=== PATIENT | female | born 1935 | race Hispanic/Latino ===

== ENCOUNTER 2017-10-31 13:57 | Inpatient (IN) | payer MEDICARE ==
[2017-10-31 14:53] VITALS: BMI 26.8
[2017-10-31] MEDS ORDERED: metroNIDAZOLE IV 500 mg/100 ml 500 MG/100 ML BAG IVPB STA (15:00)
[2017-10-31] MEDS ORDERED: Piperacillin/Tazobact 3.375 gm 100 ML IVPB STA (15:00)
--- NOTE | 2017-10-31 15:09 | ED PDOC ---
Arrival/HPI - General Chief Complaint: Hip Pain Time Seen by Provider: 10/31/17 13:59 Historian: Patient - History of Present Illness Narrative History of Present Illness (Text): 10/31/17 15:00 A 81 year old female, with no past surgical history presents to the emergency department complaining of worsening right-side abdominal pain for 3 months. Patient reports having seen PMD last week and was sent to [facility] [place] for [place] CT scan. CT results showed abscess to right abdomen, questionable diverticulitis vs rupture. Patient was sent by PMD to ER for further evaluation. Patient denies any fever, cough, or any other complaints at this time. PMD: Dr. Fernandez 10/31/17 15:14 Report (no images available) "CT abd/pelvis with po and IV contrast: mass having appearance of an abscess associated with the posterior wall of the ascending colon. May be diverticular abscess. Appendix not seen, if it has not been removed, periappendiceal abscess is also a consideration. Perforated neoplasm with abscess is less likely but also should be considered. Adjacent lymph nodes are less likely reaction inflammatory nodes. Left renal mass likely a hyperdense cyst which could be confirmed by ultrasound " Past Medical History - Provider Review Nursing Documentation Reviewed: Yes - Reproductive Menopause: Yes - Cardiac Hx Cardiac Disorders: Yes Hx Hypertension: Yes - Pulmonary Hx Respiratory Disorders: No - Neurological Hx Neurological Disorder: No - HEENT Hx HEENT Disorder: No - Renal Hx Renal Disorder: No - Endocrine/Metabolic Hx Endocrine Disorders: No - Hematological/Oncological Hx Blood Disorders: No - Integumentary Hx Dermatological Disorder: No - Musculoskeletal/Rheumatological Hx Musculoskeletal Disorders: Yes Other/Comment: rip hip pain - Gastrointestinal Hx Gastrointestinal Disorders: No - Genitourinary/Gynecological Hx Genitourinary Disorders: No - Psychiatric Hx Psychophysiologic Disorder: No Hx Substance Use: No - Anesthesia Hx Anesthesia: No Family/Social History - Physician Review Nursing Documentation Reviewed: Yes Family/Social History: No Known Family HX Smoking Status: Never Smoked Hx Alcohol Use: Yes Frequency of alcohol use: Socially Hx Substance Use: No Allergies/Home Meds Allergies/Adverse Reactions: Allergies No Known Allergies Allergy (Verified 10/31/17 14:30) Home Medications: Home Meds Medication Instructions Recorded Confirmed Atenolol/Chlorthalidone [Tenoretic 1 each PO DAILY 10/31/17 10/31/17 50 Tablet] Review of Systems - Review of Systems Constitutional: absent: Fevers Eyes: absent: Vision Changes ENT: absent: Hearing Changes Respiratory: absent: SOB, Cough, Sputum, Wheezing Cardiovascular: absent: Chest Pain, Palpitations, Edema, Calf Pain, Orthopnea, Syncope Gastrointestinal: Abdominal Pain (right-side). absent: Constipation, Diarrhea, Nausea, Vomiting Genitourinary Female: absent: Dysuria Neurological: absent: Headache Physical Exam Vital Signs Temp Pulse Resp BP Pulse Ox 10/31/17 15:33 97.9 F 60 18 138/62 99 Temperature: Afebrile Blood Pressure: Normal Pulse: Regular Respiratory Rate: Normal Appearance: Positive for: Well-Appearing, Non-Toxic, Comfortable Pain Distress: None Mental Status: Positive for: Alert and Oriented X 3 - Systems Exam Head: Present: Atraumatic, Normocephalic Pupils: Present: PERRL Extroacular Muscles: Present: EOMI Conjunctiva: Present: Normal Respiratory/Chest: Present: Clear to Auscultation, Good Air Exchange. No: Respiratory Distress, Accessory Muscle Use Cardiovascular: Present: Regular Rate and Rhythm, Normal S1, S2. No: Murmurs Abdomen: Present: Tenderness (RLQ tenderness) Upper Extremity: Present: Normal Inspection. No: Cyanosis, Edema Lower Extremity: Present: Normal Inspection. No: Edema Neurological: Present: GCS=15, CN II-XII Intact, Speech Normal Skin: Present: Warm, Dry, Normal Color. No: Rashes Psychiatric: Present: Alert, Oriented x 3, Normal Insight, Normal Concentration Medical Decision Making ED Course and Treatment: 10/31/17 15:04 Impression: 81 year old female with right-side worsening abdominal pain. Physical exam shows RLQ tenderness to abdomen; no other acute findings on examination. Plan: -- Chest X-ray -- Labs -- Blood Culture -- Urine Culture -- Flagyl -- Zosyn -- Urinalysis -- Reassess and disposition Progress Notes: EKG: Ordered, reviewed, and independently interpreted the EKG. Rate : 59 BPM Rhythm : Sinus bradycardia Interpretation : LVH, no acute St changes. Comparison : No previous EKG for comparison. 10/31/2017 15:20 Chest X-ray IMPRESSION: No acute cardiopulmonary pathology seen. Dictator: Karla Almaguer MD 10/31/17 16:27 Antibiotics started after culture as requested by Dr. Fernandez. Surgery consult placed to Dr. Silver as requested by Dr. Fernandez. Surgery resident aware. - Lab Interpretations Lab Results: 10/31/17 15:25 Lab Results 10/31/17 15:25: PT 12.1, INR 1.06, APTT 29.8 10/31/17 15:25: WBC 10.1, RBC 3.90, Hgb 10.8 L, Hct 32.4 L, MCV 83.1, MCH 27.7, MCHC 33.3, RDW 14.6 H, Plt Count 318, MPV 8.5, Gran % 76.5 H, Lymph % (Auto) 14.4 L, [place] % (Auto) 6.6 H, Eos % (Auto) 2.3, Baso % (Auto) 0.2, Gran # 7.76 H , Lymph # (Auto) 1.5, [place] # (Auto) 0.7 H, Eos # (Auto) 0.2, Baso # (Auto) 0.02 - RAD Interpretation Radiology Orders: 10/31/17 14:53 CHEST PORTABLE [RAD] Stat - Medication Orders Current Medication Orders: Discontinued Medications Metronidazole (Flagyl) 500 mg in 100 mls @ 100 mls/hr IVPB STAT STA PRN Reason: Protocol Stop: 10/31/17 15:59 Piperacillin Sod/Tazobactam Sod (Zosyn 3.375 In Ns 100ml) 100 mls @ 200 mls/hr IVPB STAT STA PRN Reason: Protocol Stop: 10/31/17 15:29 - Scribe Statement The provider has reviewed the documentation as recorded by the Marcel Vitale Provider Scribe Attestation: All medical record entries made by the Marcel were at my direction and personally dictated by me. I have reviewed the chart and agree that the record accurately reflects my personal performance of the history, physical exam, medical decision making, and the department course for this patient. I have also personally directed, reviewed, and agree with the discharge instructions and disposition. Disposition/Present on Arrival - Present on Arrival Any Indicators Present on Arrival: No History of DVT/PE: No History of Uncontrolled Diabetes: No Urinary Catheter: No History of Decub. Ulcer: No History Surgical Site Infection Following: None - Disposition Have Diagnosis and Disposition been Completed?: Yes Diagnosis: Abdominal pain Disposition: HOSPITALIZED Disposition Time: 15:17 Patient Plan: Admission Patient Problems: Current Active Problems Problem Status Onset Abdominal pain Acute Condition: FAIR
--- NOTE | 2017-10-31 15:22 | RAD ---
HISTORY: admission COMPARISON: No prior. FINDINGS: LUNGS: No active pulmonary disease. PLEURA: No significant pleural effusion identified, no pneumothorax apparent. CARDIOVASCULAR: Normal. OSSEOUS STRUCTURES: No significant abnormalities. VISUALIZED UPPER ABDOMEN: There may be residual contrast within the colon from an outside imaging study. The current imaging studies here noted. OTHER FINDINGS: None. IMPRESSION: No acute cardiopulmonary pathology seen
[2017-10-31 15:48] LABS: BASO # 0.02 K/mm3 (0.0-2.0); BASO % 0.2 % (0.0-3.0); EOS # 0.2 (0.0-0.7); EOS % 2.3 % (1.5-5.0); GRAN # 7.76 (1.4-6.5); GRAN % 76.5 % (50.0-68.0); HEMOGLOBIN 10.8 g/dL (12.0-16.0); LYMPH # 1.5 (1.2-3.4); LYMPH % 14.4 % (22.0-35.0); MEAN CELL VOLUME 83.1 fl (80.0-105.0); MEAN CORPUSCULAR HEMOGLOBIN 27.7 pg (25.0-35.0); MEAN CORPUSCULAR HGB CONC 33.3 g/dl (31.0-37.0); MEAN PLATELET VOLUME 8.5 fl (7.0-11.0); MONO # 0.7 (0.1-0.6); MONO % 6.6 % (1.0-6.0); RBC 3.9 10^6/uL (3.5-6.1); RED CELL DISTRIBUTION WIDTH 14.6 % (11.5-14.5); WHITE BLOOD COUNT 10.1 10^3/ul (4.5-11.0)
[2017-10-31 16:00] LABS: INR 1.06 (0.93-1.08); PARTIAL THROMBOPLASTIN TIME 29.8 Seconds (25.1-36.5); PROTHROMBIN TIME 12.1 SECONDS (9.4-12.5)
[2017-10-31 16:32] LABS: ALB/GLOB RATIO 1.2 (1.1-1.8); ALT/SGPT 38 U/L (7-56); AST/SGOT 35 U/L (14-36); BLOOD UREA NITROGEN 19 mg/dL (7-21); CALCIUM 9.4 mg/dL (8.4-10.5); GFR AFRICAN-AMERICAN > 60; GFR NON-AFRICAN AMERICAN 60
[2017-10-31 17:16] LABS: URINE APPEARANCE CLEAR (CLEAR); URINE BILIRUBIN NEGATIVE (NEGATIVE); URINE BLOOD NEGATIVE (NEGATIVE); URINE COLOR YELLOW (YELLOW); URINE GLUCOSE (UA) NEGATIVE (NEGATIVE); URINE LEUKOCYTE ESTERASE NEGATIVE Leu/uL (NEGATIVE); URINE PROTEIN NEGATIVE mg/dL (<30 mg/dL); URINE UROBILINOGEN 0.2 E.U./dL (<1 E.U./dL)
[2017-10-31] MEDS ORDERED: Piperacillin/Tazobact 3.375 gm 100 ML IVPB SCH (18:00)
--- NOTE | 2017-10-31 18:02 | CP.PCM.CON ---
History of Present Illness - History of Present Illness History of Present Illness: Surgery Consult: Dr. Silver (Dr. Esdras willard) Pt is an 81F with PMHx significant only for HTN, who was sent to [facility] by her PMD for RLQ pain. Pt states she's been having intermittent RLQ pain for the past few months that she attributed to a pulled muscle. She describes the pain as dull & positional and states that her daughter finally convinced her to see her PMD last week. Blood work was done in the office & pt was sent to get a CT scan that she got today at [facility] [place] report was read as 4cm irregular mass with thick wall & fluid/bubbles inside , suspicious for an abscess. Mass is located posterior to the ascending colon, deforming the colon wall & appears to be communicating with the ascending colon. Perforated appendicitis vs diverticular abscess can't be ruled out. Pt was told to come to the ER & surgery consulted to evaluate. Upon examination in the ER, pt is sitting comfortably in bedside chair & states she feels well. States the pain hasn't really bothered her at all today & she has not had any other associated symptoms. She denies nausea/vomiting, fevers/chills, constipation/diarrhea. She does admit to having several lose BMs after drinking PO contrast & states she has no other complaints at this time. PMHx: HTN PSHx: denies SocialHx: denies smoking/drugs, social EtOH NKDA Review of Systems - Review of Systems All systems: reviewed and no additional remarkable complaints except (as per HPI ) Past Patient History - Past Social History Smoking Status: Never Smoked - CARDIAC Hx Cardiac Disorders: Yes Hx Hypertension: Yes - PULMONARY Hx Respiratory Disorders: No - NEUROLOGICAL Hx Neurological Disorder: No - HEENT Hx HEENT Problems: No - RENAL Hx Chronic Kidney Disease: No - ENDOCRINE/METABOLIC Hx Endocrine Disorders: No - HEMATOLOGICAL/ONCOLOGICAL Hx Blood Disorders: No - INTEGUMENTARY Hx Dermatological Problems: No - MUSCULOSKELETAL/RHEUMATOLOGICAL Hx Musculoskeletal Disorders: Yes Other/Comment: rip hip pain - GASTROINTESTINAL Hx Gastrointestinal Disorders: No - GENITOURINARY/GYNECOLOGICAL Hx Genitourinary Disorders: No - PSYCHIATRIC Hx Psychophysiologic Disorder: No Hx Substance Use: No - SURGICAL HISTORY Hx Surgeries: No - ANESTHESIA Hx Anesthesia: No Meds Allergies/Adverse Reactions: Allergies Allergy/AdvReac Type Severity Reaction Status Date / Time No Known Allergies Allergy Verified 10/31/17 14:30 - Medications Medications: Current Medications Potassium Chloride (Potassium Chloride 20 Meq/100 Ml) 20 meq in 100 mls @ 50 mls/hr IVPB Q2H [facility] Stop: 10/31/17 20:44 Last Admin: 10/31/17 17:02 Dose: 50 mls/hr Metronidazole (Flagyl) 500 mg in 100 mls @ 100 mls/hr IVPB Q8 [facility] PRN Reason: Protocol Piperacillin Sod/Tazobactam Sod (Zosyn 3.375 In Ns 100ml) 100 mls @ 200 mls/hr IVPB Q6 A[facility]ENIO PRN Reason: Protocol Stop: 11/01/17 00:29 Sodium Chloride (Sodium Chloride 0.9%) 500 mls @ 80 mls/hr IV .Q6H15M [facility] Physical Exam - Constitutional Appears: Well, No Acute Distress - Head Exam Head Exam: ATRAUMATIC, NORMOCEPHALIC - Eye Exam Eye Exam: Normal appearance - ENT Exam ENT Exam: Mucous Membranes Moist - Respiratory Exam Respiratory Exam: NORMAL BREATHING PATTERN - Cardiovascular Exam Cardiovascular Exam: RRR - GI/Abdominal Exam GI & Abdominal Exam: Soft, Tenderness (to deep palpation in the RLQ ). absent: Distended, Guarding, Rebound - Extremities Exam Extremities exam: Positive for: full ROM - Neurological Exam Neurological exam: Alert, Oriented x3 - Skin Skin Exam: Dry, Warm Results - Vital Signs Recent Vital Signs: Last Vital Signs Temp 97.9 F 10/31/17 15:33 Pulse 64 10/31/17 17:21 Resp 17 10/31/17 17:21 BP 135/70 10/31/17 17:21 Pulse Ox 100 10/31/17 17:21 - Labs Result Diagrams: 10/31/17 15:25 10/31/17 15:25 Labs: Laboratory Results - last 24 hr 10/31/17 16:56 Urine Color Yellow Urine Appearance Clear Urine pH 6.0 Ur Specific [place] <= 1.005 Urine Protein Negative Urine Glucose (UA) Negative Urine Ketones Negative Urine Blood Negative Urine Nitrate Negative Urine Bilirubin Negative Urine Urobilinogen 0.2 Ur Leukocyte Esterase Negative - Imaging and Cardiology CT scan - abdomen Status: Report reviewed by me Assessment & Plan - Assessment and Plan (Free Text) Assessment: 81F with RLQ pain & RLQ collection/mass as seen on CT scan Plan: - pt clinically does not look sick, however given the findings on CT scan she will need further investigation - daughter at bedside encouraged to get CT scan imaging done at [facility] & she will attempt to obtain this tomorrow so that the actual images can be viewed by us - may need a repeat CT abdomen/pelvis if the images are not available from [facility] - ok to give CLD as pt was tolerating reg food at home w/o any issues - will cont to monitor and follow - d/w Dr. Esdras Gregg, PGY-3
[2017-10-31] MEDS: Sodium Chloride 0.9% 500 ML IV SCH (19:34)
[2017-10-31] MEDS ORDERED: CHLORTHALIDONE PO SCH (21:00)
[2017-10-31] MEDS ORDERED: ATENOLOL PO SCH (21:00)
[2017-10-31] MEDS: metroNIDAZOLE IV 500 mg/100 ml 500 MG/100 ML BAG IVPB SCH (21:32)
--- NOTE | 2017-10-31 21:46 | CARD ---
APPROVED REPORT EKG Measurement Heart [id number] <Conclusion> Sinus bradycardia Minimal voltage criteria for LVH, may be normal variant Borderline ECG
[2017-11-01] MEDS: Piperacillin/Tazobact 3.375 gm 100 ML IVPB SCH ×5 (00:40→23:19)
[2017-11-01] MEDS: metroNIDAZOLE IV 500 mg/100 ml 500 MG/100 ML BAG IVPB SCH ×3 (06:31→21:30)
[2017-11-01 07:02] LABS: HEMOGLOBIN 9.5 g/dL (12.0-16.0); MEAN CORPUSCULAR HEMOGLOBIN 26.5 pg (25.0-35.0); MEAN PLATELET VOLUME 8.5 fl (7.0-11.0); RBC 3.58 10^6/uL (3.5-6.1); RED CELL DISTRIBUTION WIDTH 14.7 % (11.5-14.5); WHITE BLOOD COUNT 9.1 10^3/ul (4.5-11.0)
[2017-11-01 07:14] LABS: BLOOD UREA NITROGEN 15 mg/dL (7-21); CALCIUM 8.5 mg/dL (8.4-10.5); GFR AFRICAN-AMERICAN > 60; GFR NON-AFRICAN AMERICAN 60
--- NOTE | 2017-11-01 08:26 | CP.PCM.PN ---
Subjective - Date & Time of Evaluation Date of Evaluation: 11/01/17 Time of Evaluation: 07:10 - Subjective Subjective: PGY-1 surgery progress note for Dr. Dewitt who is covering for Dr. Silver Patient seen and examined. Patient states that she had some RLQ tenderness overnight, but this has resolved as of this morning. She has had a small amount of flatus but denies any bowel movements. No acute events noted. Objective - Vital Signs/Intake and Output Vital Signs (last 24 hours): Temp Pulse Resp BP Pulse Ox 98.2 F 56 L 20 102/52 L 97 11/01/17 06:00 11/01/17 06:00 11/01/17 06:00 11/01/17 06:00 11/01/17 06:00 Intake and Output: 11/01/17 11/01/17 06:59 18:59 Intake Total 600 Balance 600 - Medications Medications: Current Medications Home Med (Home Med) 1 unit PO DAILY [facility] Last Admin: 10/31/17 22:08 Dose: 1 unit Metronidazole (Flagyl) 500 mg in 100 mls @ 100 mls/hr IVPB Q8 [facility] PRN Reason: Protocol Last Admin: 11/01/17 06:31 Dose: 100 mls/hr Sodium Chloride (Sodium Chloride 0.9%) 500 mls @ 80 mls/hr IV .Q6H15M [facility] Last Admin: 10/31/17 19:34 Dose: 80 mls/hr Piperacillin Sod/Tazobactam Sod (Zosyn 3.375 In Ns 100ml) 100 mls @ 200 mls/hr IVPB Q6 [facility]IO PRN Reason: Protocol Stop: 11/08/17 00:01 Last Admin: 11/01/17 05:37 Dose: 200 mls/hr - Labs Labs: 11/01/17 06:20 11/01/17 06:20 PT 12.1 SECONDS (9.4-12.5) 10/31/17 15:25 INR 1.06 (0.93-1.08) 10/31/17 15:25 APTT 29.8 Seconds (25.1-36.5) 10/31/17 15:25 - Constitutional Appears: No Acute Distress - Head Exam Head Exam: ATRAUMATIC, NORMOCEPHALIC - Eye Exam Eye Exam: EOMI, Normal appearance - ENT Exam ENT Exam: Mucous Membranes Moist - Respiratory Exam Respiratory Exam: NORMAL BREATHING PATTERN. absent: Respiratory Distress - Cardiovascular Exam Cardiovascular Exam: +S1, +S2 - GI/Abdominal Exam GI & Abdominal Exam: Soft. absent: Distended, Guarding, Tenderness - Extremities Exam Extremities Exam: absent: Pedal Edema - Neurological Exam Neurological Exam: Alert, Awake, Oriented x3 - Psychiatric Exam Psychiatric exam: Normal Affect, Normal Mood - Skin Skin Exam: Dry, Warm Assessment and Plan - Assessment and Plan (Free Text) Assessment: This is an 81 year old female with RLQ pain & RLQ collection/mass seen on prior recent CT scan from [facility] [place]. Plan: CT Images reviewed Continue IV antibiotics IR consult has been requested, follow up plans Recommend GI follow up and work up Continue liquid diet for now Discussed with Dr. Esdras Castro PGY-1
[2017-11-01] MEDS ORDERED: Barium Sulfate Susp 2.1% w/v, 2.0% w/w 450 mL Bottle PO ONE (10:15)
--- NOTE | 2017-11-01 10:45 | HP ---
HISTORY OF PRESENT ILLNESS: An 81-year-old white female with 2 months's history of persistent right lower quadrant pain. The patient denies any fever, chills, nausea, vomiting, change in bowels, etc. The patient has no history of GI problems in the past. Because of the persistent nature of the pain, the patient was sent for an outpatient CT of the abdomen and pelvis with IV and oral contrast, was found to have a large abscess in the right lower quadrant, attached to the ascending and descending colon with air bubbles and fluid consistent with an abscess. The patient also was found to be mildly anemic. PHYSICAL EXAMINATION: GENERAL: The patient's physical examination shows a well-developed, well-nourished white female, in mild distress. HEENT: Within normal limits. HEART: Regular sinus rhythm. No significant murmurs. CHEST: Clear to auscultation and percussion. EXTREMITIES: Without cyanosis, clubbing or edema. ABDOMEN: Soft, but there is tenderness and guarding and got rebound in the right lower quadrant. A fluctuant mass is palpable in the right lower quadrant. IMPRESSION: Abscess, rule out diverticular abscess, rule out ruptured appendix, rule out perforated cancer of the bowel and anemia. Nabil Fernandez MD
--- NOTE | 2017-11-01 14:27 | CP.PCM.CON ---
History of Present Illness - History of Present Illness History of Present Illness: 81 year old female with PMH of HTN was sent in to [facility] [place] because of right lower quadrant which started about 3 months ago. The pain is intermittent, burning sensation, non-radiating, not related to food. The patient denies nausea or vomiting, no change in bowel habits, not related to movements. She denies fever or chills, no cough or colds, no dysphagia, no sore throat, no headache or dizziness, no dysuria. The patient denies recent travel outside of [place] in the past 3 months, no animal contacts, has not eaten anything out of the ordinary. CT scan was done as an outpatient and it showed a mass or fluid collection in the right lower quadrant posterior to the ascending colon. Infectious diseases consult is requested to further evaluate and manage. Review of Systems - Review of Systems All systems: reviewed and no additional remarkable complaints except (as per HPI ) Past Patient History - Past Social History Smoking Status: Never Smoked - CARDIAC Hx Cardiac Disorders: Yes Hx Hypertension: Yes - PULMONARY Hx Respiratory Disorders: No - NEUROLOGICAL Hx Neurological Disorder: No - HEENT Hx HEENT Problems: No - RENAL Hx Chronic Kidney Disease: No - ENDOCRINE/METABOLIC Hx Endocrine Disorders: No - HEMATOLOGICAL/ONCOLOGICAL Hx Blood Disorders: No - INTEGUMENTARY Hx Dermatological Problems: No - MUSCULOSKELETAL/RHEUMATOLOGICAL Hx Musculoskeletal Disorders: Yes Other/Comment: rip hip pain - GASTROINTESTINAL Hx Gastrointestinal Disorders: No - GENITOURINARY/GYNECOLOGICAL Hx Genitourinary Disorders: No - PSYCHIATRIC Hx Psychophysiologic Disorder: No Hx Substance Use: No - SURGICAL HISTORY Hx Surgeries: No - ANESTHESIA Hx Anesthesia: No Meds Allergies/Adverse Reactions: Allergies Allergy/AdvReac Type Severity Reaction Status Date / Time No Known Allergies Allergy Verified 10/31/17 14:30 - Medications Medications: Current Medications Home Med (Home Med) 1 unit PO [facility] Metronidazole (Flagyl) 500 mg in 100 mls @ 100 mls/hr IVPB Q8 [facility] PRN Reason: Protocol Last Admin: 11/01/17 06:31 Dose: 100 mls/hr Sodium Chloride (Sodium Chloride 0.9%) 500 mls @ 80 mls/hr IV .Q6H15M [facility] Last Admin: 10/31/17 19:34 Dose: 80 mls/hr Piperacillin Sod/Tazobactam Sod (Zosyn 3.375 In Ns 100ml) 100 mls @ 200 mls/hr IVPB Q6 [facility]ENIO PRN Reason: Protocol Stop: 11/08/17 00:01 Last Admin: 11/01/17 05:37 Dose: 200 mls/hr Physical Exam - Constitutional Appears: Chronically Ill - Head Exam Head Exam: NORMAL INSPECTION - ENT Exam ENT Exam: Mucous Membranes Moist - Neck Exam Neck exam: Negative for: Lymphadenopathy, Meningismus - Respiratory Exam Respiratory Exam: Decreased Breath Sounds - Cardiovascular Exam Cardiovascular Exam: +S1, +S2 - GI/Abdominal Exam GI & Abdominal Exam: Soft, Tenderness (right lower quadrant). absent: Distended , Guarding, Rebound, Rigid Results - Vital Signs Recent Vital Signs: Last Vital Signs Temp 98.2 F 11/01/17 06:00 Pulse 56 L 11/01/17 06:00 Resp 20 11/01/17 06:00 BP 102/52 L 11/01/17 06:00 Pulse Ox 97 11/01/17 06:00 - Labs Result Diagrams: 11/01/17 06:20 11/01/17 06:20 Labs: Laboratory Results - last 24 hr 10/31/17 10/31/17 11/01/17 16:56 17:04 06:20 WBC RBC Hgb Hct MCV MCH MCHC RDW Plt Count MPV Sodium Potassium Chloride Carbon Dioxide Anion Gap BUN Creatinine Est GFR ( Amer) Est GFR (Non-Af Amer) Random Glucose Calcium Urine Color Yellow Urine Appearance Clear Urine pH 6.0 Ur Specific [place] <= 1.005 Urine Protein Negative Urine Glucose (UA) Negative Urine Ketones Negative Urine Blood Negative Urine Nitrate Negative Urine Bilirubin Negative Urine Urobilinogen 0.2 Ur Leukocyte Esterase Negative Blood Type O POSITIVE Blood Type Confirm O POSITIVE Antibody Screen Negative BBK History Checked No verified bt 11/01/17 11/01/17 06:20 06:20 WBC 9.1 RBC 3.58 Hgb 9.5 L Hct 29.7 L MCV 83.0 MCH 26.5 MCHC 32.0 RDW 14.7 H Plt Count 304 MPV 8.5 Sodium 141 Potassium 3.7 Chloride 104 Carbon Dioxide 29 Anion Gap 13 BUN 15 Creatinine 0.9 Est GFR ( Amer) > 60 Est GFR (Non-Af Amer) 60 Random Glucose 89 Calcium 8.5 Urine Color Urine Appearance Urine pH Ur Specific [place] Urine Protein Urine Glucose (UA) Urine Ketones Urine Blood Urine Nitrate Urine Bilirubin Urine Urobilinogen Ur Leukocyte Esterase Blood Type Blood Type Confirm Antibody Screen BBK History Checked Assessment & Plan - Assessment and Plan (Free Text) Plan: Assessment Right lower quadrant mass / fluid collection, R/O abscess, R/O malignancy HTN Plan started patient on Zosyn pending blood cx; will await Surgery and Interventional Radiology recommendations and plans to drain / biopsy the fluid / mass - should be sent for pathology, bacterial, fungal, mycobacterial cultures will monitor clinically
[2017-11-01] MEDS: Sodium Chloride 0.9% 500 ML IV SCH (18:32)
[2017-11-01] MEDS ORDERED: ATENOLOL PO SCH (22:00)
[2017-11-01] MEDS ORDERED: CHLORTHALIDONE PO SCH (22:00)
[2017-11-02] MEDS: Piperacillin/Tazobact 3.375 gm 100 ML IVPB SCH ×2 (05:18→14:29)
[2017-11-02] MEDS: metroNIDAZOLE IV 500 mg/100 ml 500 MG/100 ML BAG IVPB SCH (05:44)
[2017-11-02 08:21] VITALS: BP 117/54; PULSE 50; RESP 20; TEMP 98.5; O2SAT 97
--- NOTE | 2017-11-02 13:46 | CP.PCM.PN ---
Subjective - Date & Time of Evaluation Date of Evaluation: 11/02/17 Time of Evaluation: 07:45 - Subjective Subjective: Surgery Progress note. Dr. Silver Pt seen and examined at bedside. Denies any Fevers or chills. No N/V. Abd pain improved. Does report some loose stools, no blood, no melena. No new complaints. Objective - Vital Signs/Intake and Output Vital Signs (last 24 hours): Temp Pulse Resp BP Pulse Ox 98.5 F 50 L 20 117/54 L 97 11/02/17 08:20 11/02/17 08:20 11/02/17 08:20 11/02/17 08:20 11/02/17 08:20 Intake and Output: 11/02/17 11/02/17 06:59 18:59 Intake Total 2059 Balance 2059 - Medications Medications: Current Medications Home Med (Home Med) 1 unit PO 0 [facility] Last Admin: 11/01/17 21:32 Dose: 1 unit Metronidazole (Flagyl) 500 mg in 100 mls @ 100 mls/hr IVPB Q8 [facility]IO PRN Reason: Protocol Last Admin: 11/02/17 05:44 Dose: 100 mls/hr Sodium Chloride (Sodium Chloride 0.9%) 500 mls @ 80 mls/hr IV .Q6H15M [facility] Last Admin: 11/01/17 18:32 Dose: 80 mls/hr Piperacillin Sod/Tazobactam Sod (Zosyn 3.375 In Ns 100ml) 100 mls @ 200 mls/hr IVPB Q6 [facility] PRN Reason: Protocol Stop: 11/08/17 00:01 Last Admin: 11/02/17 05:18 Dose: 200 mls/hr - Labs Labs: 11/01/17 06:20 11/01/17 06:20 PT 12.1 SECONDS (9.4-12.5) 10/31/17 15:25 INR 1.06 (0.93-1.08) 10/31/17 15:25 APTT 29.8 Seconds (25.1-36.5) 10/31/17 15:25 - Constitutional Appears: Well, Non-toxic, No Acute Distress - Head Exam Head Exam: ATRAUMATIC, NORMAL INSPECTION, NORMOCEPHALIC - Eye Exam Eye Exam: EOMI, Normal appearance - ENT Exam ENT Exam: Mucous Membranes Moist - Respiratory Exam Respiratory Exam: NORMAL BREATHING PATTERN. absent: Accessory Muscle Use, Respiratory Distress - Cardiovascular Exam Cardiovascular Exam: RRR. absent: JVD - GI/Abdominal Exam GI & Abdominal Exam: Soft. absent: Distended, Firm, Guarding, Rigid, Rebound Additional comments: Mild tenderness to deep palpation RLQ. - Extremities Exam Extremities Exam: Normal Inspection. absent: Calf Tenderness - Neurological Exam Neurological Exam: Alert, Awake, Oriented x3 - Skin Skin Exam: Dry, Intact, Normal Color, Warm Assessment and Plan - Assessment and Plan (Free Text) Assessment: 81yo F with Right ila-colonic collection vs. mass. - CT Abd/pelvis noted. Plan: - Patient would like to obtain a second opinion. - Discussed all surgical plans and options with patient. Patient and family verbalized understanding. - Recommend GI follow-up. - Patient may follow up with Dr. Silver in office for further management if needed after obtaining second opinion. Call for appointment Further recs as per Dr. Nadeem Cheatham PGY1 surgery pager: [phone]
[2017-11-02] MEDS ORDERED: Vancomycin 25 MG/ML PO SCH (18:00)
--- NOTE | 2017-11-03 00:04 | CON ---
DATE: 11/02/2017 HISTORY OF PRESENT ILLNESS: Cari Schneider is seen as she is being discharged. Patient was admitted because of an abnormal CAT scan and fullness of the right lower quadrant. This was discussed with Dr. Kelvin March, who believed this not to be an abscess, but probably to be a tumor, probably necrotic. Reviewed the CAT scan from [facility], and certainly you can see a mass or collection contiguous with cecum, not involving the colon otherwise. No appendix was seen. No history of appendicitis. The patient is afebrile, 81 years old, very pleasant as is the family. PAST MEDICAL HISTORY: Very unremarkable. PAST SURGICAL HISTORY: Negative. Two children, natural, without surgery. MEDICATIONS: Refuses medications. ALLERGIES: NO ALLERGIES. REVIEW OF SYSTEMS: Unremarkable except for some vague pain and fullness in the right lower quadrant. No nausea, vomiting, diarrhea, constipation, or bright red blood per rectum. No melena. No fevers or chills. No dysuria, frequency, or urgency. LABORATORY DATA: CAT scan was reviewed, I looked at it myself. My gut feeling is this is an appendicitis, although I am not certain of that. PHYSICAL EXAMINATION: She has vague fullness in the right lower quadrant without guarding, rebound, or tenderness. IMPRESSION: There is a mass in the right lower quadrant, and necrotic tumor or abscess. I think it is an abscess, this will slowly growing and very indolent one. PLAN: The patient is to be discharged for second opinion. My first opinion, three options; one is just to treat with antibiotics; #2, IR intervention with an aspiration and possibly drain, and surgery involving laparoscopy and open procedure, possibly a right hemicolectomy, possibly just drainage, possibly an appendectomy. At this stage, I spoke to Dr. Kelvin March who is reluctant to put a drain in. My feeling would be that would be the first step to see what the fluid is like, but ultimately, we need an operation, possibly right hemicolectomy. The appendix is not seen, this could be an indolent appendicitis and/or mildly infected mucinous cyst. Looks like the fluid is thick and IR drainage might be impossible. Patient is going for second opinion. Liam Silver MD
--- NOTE | 2017-11-03 07:55 | DS ---
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 The patient was seen in consultation with Dr. Kelvin March and also by Dr. Silver's surgical team. The patient has no white count. She is afebrile. Vital signs are stable. She has tenderness in the right lower quadrant. CT shows a large abscess with bubbles and contiguous with the ascending colon, possible appendiceal rupture, possible diverticular abscess, possible eroding carcinoma. The patient will be transferred to home on p.o. antibiotics to have a second opinion from another surgeon for possible surgical resection. FINAL DISCHARGE DIAGNOSES: Intra-abdominal abscess and hypertension. Nabil Fernandez MD
== END 2017-11-02 17:39 | disposition home or self-care (01) | DRG 373 ==
LOC: ED 13:57 → ERH 15:40 → 5RNO 18:35
PROVIDERS: ADMIT Internal Medicine; ATTEND Internal Medicine
DX: K65.1 Peritoneal abscess (principal); I10 Essential (primary) hypertension; D64.9 Anemia, unspecified; N28.89 Other specified disorders of kidney and ureter; R40.2412 Glasgow coma scale score 13-15, at arrival to emergency department; N28.1 Cyst of kidney, acquired